=== PATIENT | male | born 1975 | race Caucasian/White ===

== ENCOUNTER → 2022-10-02 | Outpatient (REF) | payer OTHER | LOC: M LAB REF 11:18 | PROVIDERS: ATTEND Nurse Practitioner Adult Health | DX: Z01.818 Encounter for other preprocedural examination (principal); Z20.828 Contact with and (suspected) exposure to other viral communicable diseases ==

== ENCOUNTER 2023-04-20 09:37 | Day surgery (SDC) | payer OTHER ==
[~2023-04-20] VITALS: Ht 188 cm; Wt 96.0 kg
[~2023-04-20 09:37] MED LIST: NS 1,000 ML IV ONE
[2023-04-20] MEDS ORDERED: propofoL 200 MG/20 ML VIAL As Ordered ONE (11:06)
[2023-04-20 11:40] VITALS: BP 104/61
== END 2023-04-20 11:56 | disposition home or self-care (01) ==
LOC: M OPP 09:37
PROVIDERS: ATTEND Internal Medicine Gastroenterology
DX: Z12.11 Encounter for screening for malignant neoplasm of colon (principal); Z80.0 Family history of malignant neoplasm of digestive organs; Z83.71 Family history of colonic polyps